=== PATIENT | male | born 1955 | race Caucasian/White ===

== ENCOUNTER 2022-03-20 10:07 | Inpatient (IN) | payer SELFPAY ==
--- NOTE | 2022-03-20 11:22 | Emergency Department Report ---
ED General Adult HPI - General Chief complaint: Weakness Stated complaint: DIALYSIS/WEAKNESS Time Seen by Provider: 03/20/22 11:21 Source: patient Mode of arrival: Stretcher Limitations: No Limitations - History of Present Illness Initial comments: Patient is a 66-year-old male who presents with shortness of breath and weakness. Patient is a [place] Verdean speaking male. History is limited due to poor history. Patient was brought in by EMS he has not had dialysis he usually gets his dialysis at [facility]. He is on 3 L of oxygen. - Related Data Allergies Allergy/AdvReac Type Severity Reaction Status Date / Time No Known Allergies Allergy Verified 03/20/22 10:55 ED Review of Systems ROS: Stated complaint: DIALYSIS/WEAKNESS Other details as noted in HPI Comment: Unobtainable due to pts medical conditions ED Past Medical Hx - Past Medical History Previous Medical History?: Yes Hx Renal Disease: Yes - Surgical History Past Surgical History?: No - Social History Smoking Status: Unknown if ever smoked Substance Use Type: None ED Physical Exam - General Limitations: No Limitations, Language Barrier General appearance: alert, in no apparent distress - Head Head exam: Present: atraumatic, normocephalic - Eye Eye exam: Present: normal appearance - ENT ENT exam: Present: mucous membranes moist - Neck Neck exam: Present: normal inspection - Respiratory Respiratory exam: Present: other (Crackles) - Cardiovascular Cardiovascular Exam: Present: regular rate, normal rhythm. Absent: systolic murmur, diastolic murmur, rubs, gallop - GI/Abdominal GI/Abdominal exam: Present: soft, normal bowel sounds - Rectal Rectal exam: Present: deferred - Extremities Exam Extremities exam: Present: other (Bilateral [id number] amputations left AV fistula) - Back Exam Back exam: Present: normal inspection - Neurological Exam Neurological exam: Present: alert, oriented X3 - Psychiatric Psychiatric exam: Present: normal affect, normal mood - Skin Skin exam: Present: warm, dry, intact, normal color. Absent: rash ED Course Vital Signs 03/20/22 03/20/22 10:37 10:56 Temperature 99 F Pulse Rate 88 Respiratory 16 Rate Blood Pressure 124/30 [Left] O2 Sat by Pulse 95 95 Oximetry ED Medical Decision Making - Lab Data Result diagrams: 03/20/22 11:28 03/20/22 11:28 Lab Results 06/18/22 06/18/22 Range/Units 11:28 11:28 WBC 10.9 (4.5-11.0) K/mm3 RBC 3.02 L (3.65-5.03) M/mm3 Hgb 9.0 L (11.8-15.2) gm/dl Hct 28.1 L (35.5-45.6) % MCV 93 (84-94) fl MCH 30 (28-32) pg MCHC 32 (32-34) % RDW 19.6 H (13.2-15.2) % Plt Count 181 (140-440) K/mm3 Lymph % (Auto) 8.5 L (13.4-35.0) % [place] % (Auto) 6.2 (0.0-7.3) % Eos % (Auto) 2.4 (0.0-4.3) % Baso % (Auto) 1.0 (0.0-1.8) % Lymph # (Auto) 0.9 L (1.2-5.4) K/mm3 [place] # (Auto) 0.7 (0.0-0.8) K/mm3 Eos # (Auto) 0.3 (0.0-0.4) K/mm3 Baso # (Auto) 0.1 (0.0-0.1) K/mm3 Seg Neutrophils % 81.9 H (40.0-70.0) % Seg Neutrophils # 8.9 H (1.8-7.7) K/mm3 Sodium 137 (137-145) mmol/L Potassium 4.4 (3.6-5.0) mmol/L Chloride 97.2 L (98-107) mmol/L Carbon Dioxide 27 (22-30) mmol/L Anion Gap 17 mmol/L BUN 42 H (9-20) mg/dL Creatinine 6.3 H (0.8-1.3) mg/dL Estimated GFR 9 ml/min BUN/Creatinine Ratio 7 % Glucose 89 (75-100) mg/dL Calcium 9.3 (8.4-10.2) mg/dL Total Bilirubin 0.60 (0.1-1.2) mg/dL AST 44 H (5-40) units/L ALT 20 (7-56) units/L Alkaline Phosphatase 90 (35-129) units/L Total Protein 6.5 (6.3-8.2) g/dL Albumin 2.5 L (3.9-5) g/dL Albumin/Globulin Ratio 0.6 % - EKG Data -: EKG Interpreted by Me - EKG Data 03/20/22 14:17 EKG time 12: 45 rate 84 sinus rhythm right bundle branch block and left anterior fascicular block. Impression abnormal EKG - Radiology Data Radiology results: report reviewed, image reviewed Chest x-ray: Shows bilateral pulmonary opacities - Medical Decision Making Chief medical diagnosis: Pulmonary edema Differential medical diagnosis end-stage renal disease, acute kidney injury, hyperkalemia I will get CBC BMP chest x-ray and nephrology consult Patient will need to be admitted to the hospital for diaysis and fluid overload. Critical care attestation.: If time is entered above; I have spent that time in minutes in the direct care of this critically ill patient, excluding procedure time. ED Disposition Clinical Impression: ESRD (end stage renal disease) on dialysis Pulmonary edema Qualifiers: Chronicity: acute Qualified Code(s): J81.0 - Acute pulmonary edema Disposition: ADMITTED INPATIENT Is pt being admited?: Yes Does the pt Need Aspirin: No Condition: Stable Instructions: Pulmonary Edema (ED) Referrals: LEONEL OROZCO MD [Primary Care Provider] - 3-5 Days
[2022-03-20 12:24] LABS: Basophils # (Auto) 0.1 K/mm3 (0.0-0.1); Eosinophils # (Auto) 0.3 K/mm3 (0.0-0.4); Eosinophils % (Auto) 2.4 % (0.0-4.3); Hematocrit 28.1 % (35.5-45.6); Lymphocytes # (Auto) 0.9 K/mm3 (1.2-5.4); Lymphocytes % (Auto) 8.5 % (13.4-35.0); Mean Corpuscular HGB Conc 32 % (32-34); Mean Corpuscular Volume 93 fl (84-94); Monocytes # (Auto) 0.7 K/mm3 (0.0-0.8); Monocytes % (Auto) 6.2 % (0.0-7.3); Platelet Count 181 K/mm3 (140-440); Red Blood Count 3.02 M/mm3 (3.65-5.03); Red Cell Distribution Width 19.6 % (13.2-15.2)
[2022-03-20 12:42] LABS: Albumin 2.5 g/dL (3.9-5); Calcium 9.3 mg/dL (8.4-10.2)
--- NOTE | 2022-03-20 13:10 | XRay Report ---
CHEST 1 VIEW 03/20/2022 12:01 PM INDICATION / CLINICAL INFORMATION: weakness. COMPARISON: None available. FINDINGS: SUPPORT DEVICES: None. HEART / MEDIASTINUM: No significant abnormality. LUNGS / PLEURA: Increased interstitial prominence with bilateral pulmonary opacities. Small effusions No pneumothorax. ADDITIONAL FINDINGS: No significant additional findings. IMPRESSION: Bilateral pulmonary opacities Signer Name: Yon Castellon MD Signed: 03/20/2022 1:05 PM Workstation Name: [id number]
[2022-03-20] MEDS ORDERED: SODIUM CHLORIDE 0.9% 100 ML IV PRN (13:44)
--- NOTE | 2022-03-20 13:49 | Consultation ---
History of Present Illness - Reason for Consult Consult date: 03/20/22 end stage renal disease - History of Present Illness RFC: ESRD on HD HPI: 66 year old M here for dialysis. He currently denies N/V, belly pain, diarrhea. He is on HD via AVF. He gets HD in hospital ERs as he does not have a dialysis unit. ROS: As in HPI otherwise 12 point review of systems -ve - Past Medical History Previous Medical History?: Yes Hx Renal Disease: Yes - Surgical History Past Surgical History?: No - Social History Smoking Status: Unknown if ever smoked Substance Use Type: None Medications and Allergies Allergies Allergy/AdvReac Type Severity Reaction Status Date / Time No Known Allergies Allergy Verified 03/20/22 10:55 Active Meds: Active Medications Sodium Chloride (Nacl 0.9%) 100 mls @ 999 mls/hr IV SANDIE PRN PRN Reason: Hypotension Exam - Vital Signs Vital signs: Vital Signs Temp Pulse Resp BP Pulse Ox 99 F 88 16 124/30 95 03/20/22 10:37 03/20/22 10:37 03/20/22 10:37 03/20/22 10:37 03/20/22 10:37 - Physical Exam Narrative exam: GE:AAOX3 HEENT:Normocephalic Neck:Supple Chest:CTAB CVS:RRR Abdomen:Soft/BS+ Ext:No cce Results - Lab Results 03/20/22 11:28 03/20/22 11:28 Most recent lab results Calcium 9.3 mg/dL (8.4-10.2) 03/20/22 11:28 Assessment and Plan ESRD on HD Anemia of chronic disease due to ESRD: Hypoalbuminemia: Elevated LFTs: -CXR congested. -HD ordered for today -Pt agreeable and consents to HD inpatient -Does not have OP HD unit, he gets HD at [facility] usually -Strict I/Os
[2022-03-20] MEDS ORDERED: MORPHINE 2 MG/1 ML INJ IV PRN (15:11)
[2022-03-20] MEDS ORDERED: METOCLOPRAMIDE 10 MG/2 ML INJ IV PRN (15:11)
[2022-03-20] MEDS ORDERED: oxyCODONE /ACETAMINOPHEN 5-325MG TAB PO PRN (15:11)
[2022-03-20] MEDS ORDERED: ONDANSETRON 4 MG/2 ML INJ IV PRN (15:11)
[2022-03-20] MEDS ORDERED: ACETAMINOPHEN 325 MG TAB PO PRN (15:11)
[2022-03-20] MEDS: HEPARIN 5,000 UNIT/1 ML VIAL SUB-Q SCH (16:30)
[2022-03-20 17:41] LABS: Hepatitis B Surface Antigen Non-Reactive (Negative)
--- NOTE | 2022-03-20 18:50 | History and Physical Report ---
History of Present Illness Date of examination: 03/20/22 Date of admission: 03/20/2022 Chief complaint: Shortness of breath for about 2 days History of present illness: [age]-year-old Vietnamese-speaking male with history of end-stage renal disease comes in for missed hemodialysis. He missed 2 hemodialysis sessions. Normally gets dialysis twice a week on Wednesdays and Saturdays. He goes to [facility] for getting his hemodialysis. History taking is limited because of language barrier. Patient is short of breath because of the missed dialysis and also has orthopnea. No fever or chills. Patient does not have a hemodialysis chair. 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 - Past Medical History --Renal Disease: Yes - Surgical History -- Bilateral above-knee amputation - Social History --Smoking Status: Unknown if ever smoked --Substance Use Type: None -Family history --unavailable Review of Systems ROS: Constitutional no weight loss or weight gain no fever or chills HEENT no sore throat no post nasal drip no diplopia Neck no neck stiffness no lymph gland enlargement Chest and lungs shortness of breath and orthopnea present CVS shortness of breath and orthopnea present GI no nausea no vomiting no diarrhea Genitourinary system no dysuria no flank pain Musculoskeletal system no muscle pains no joint pains FOOD SERVICE ORDER CLERK no syncope no seizures Skin no rash no itching Psychiatric no depression no homicidal or suicidal tendencies Hematologic no lymphedema or bruising Endocrine no polydipsia no polyuria no cold intolerance no heat intolerance Medications and Allergies Allergies Allergy/AdvReac Type Severity Reaction Status Date / Time No Known Allergies Allergy Verified 03/20/22 10:55 Active Meds: Active Medications Acetaminophen (Acetaminophen 325 Mg Tab) 650 mg PO Q4H PRN PRN Reason: Pain MILD(1-3)/Fever >100.5/THAKUR Heparin Sodium (Porcine) (Heparin 5,000 Unit/1 Ml Vial) 5,000 unit SUB-Q Q12HR SUSAN Last Admin: 03/20/22 16:30 Dose: 5,000 unit Sodium Chloride (Nacl 0.9%) 100 mls @ 999 mls/hr IV SANDIE PRN PRN Reason: Hypotension Metoclopramide HCl (Metoclopramide 10 Mg/2 Ml Inj) 10 mg IV Q6H PRN PRN Reason: Nausea And Vomiting Morphine Sulfate (Morphine 2 Mg/1 Ml Inj) 2 mg IV Q4H PRN PRN Reason: Pain, Moderate (4-6) Ondansetron HCl (Ondansetron 4 Mg/2 Ml Inj) 4 mg IV Q8H PRN PRN Reason: Nausea And Vomiting Oxycodone/Acetaminophen (Oxycodone /Acetaminophen 5-325mg Tab) 1 tab PO Q6H PRN PRN Reason: Pain, Moderate (4-6) Sodium Chloride (Sodium Chloride 0.9% 10 Ml Flush Syringe) 10 ml IV BID SUSAN Last Admin: 03/20/22 16:30 Dose: 10 ml Sodium Chloride (Sodium Chloride 0.9% 10 Ml Flush Syringe) 10 ml IV PRN PRN PRN Reason: LINE FLUSH Exam - Constitutional Vitals: Temp Pulse Resp BP Pulse Ox 99 F 88 16 124/30 95 03/20/22 10:37 03/20/22 10:37 03/20/22 10:37 03/20/22 10:37 03/20/22 10:56 General appearance: Present: mild distress, well-nourished - EENT Eyes: Present: PERRL ENT: hearing intact, clear oral mucosa - Neck Neck: Present: supple, normal ROM - Respiratory Respiratory effort: normal Respiratory: bilateral: CTA - Cardiovascular Heart rate: 95 Rhythm: regular Heart Sounds: Present: S1 & S2. Absent: rub, click - Extremities Extremities: pulses symmetrical, No edema, abnormal (Bilateral above-knee amputation) Extremity abnormal: other (Bilateral above-knee amputation) Peripheral Pulses: within normal limits - Abdominal General gastrointestinal: Present: soft, non-tender, non-distended, normal bowel sounds Male genitourinary: Present: normal - Integumentary Integumentary: Present: clear, warm, dry - Musculoskeletal Musculoskeletal: gait normal, strength equal bilaterally - Psychiatric Psychiatric: appropriate mood/affect, intact judgment & insight - Neurologic Neurologic: CNII-XII intact, moves all extremities HEART Score - HEART Score History: Moderately suspicious Risk factors: 1-2 risk factors Troponin: < normal limit - Critical Actions Critical Actions: 0-3 pts:0.9-1.7%risk of adverse cardiac event.Candidate for discharge Results - Labs CBC & Chem 7: 03/20/22 11:28 03/20/22 11:28 Labs: Laboratory Last Values WBC 10.9 K/mm3 (4.5-11.0) 03/20/22 11: RBC 3.02 M/mm3 (3.65-5.03) L 03/20/22 11:28 Hgb 9.0 gm/dl (11.8-15.2) L 03/20/22 11: Hct 28.1 % (35.5-45.6) L 03/20/22 11: MCV 93 fl (84-94) 03/20/22 11: MCH 30 pg (28-32) 03/20/22 11:28 MCHC 32 % (32-34) 03/20/22 11:28 RDW 19.6 % (13.2-15.2) H 03/20/22 11:28 Plt Count 181 K/mm3 (140-440) 03/20/22 11:28 Lymph % (Auto) 8.5 % (13.4-35.0) L 03/20/22 11: [place] % (Auto) 6.2 % (0.0-7.3) 03/20/22 11: Eos % (Auto) 2.4 % (0.0-4.3) 03/20/22 11: Baso % (Auto) 1.0 % (0.0-1.8) 03/20/22 11: Lymph # (Auto) 0.9 K/mm3 (1.2-5.4) L 03/20/22 11:28 [place] # (Auto) 0.7 K/mm3 (0.0-0.8) 03/20/22 11: Eos # (Auto) 0.3 K/mm3 (0.0-0.4) 03/20/22 11: Baso # (Auto) 0.1 K/mm3 (0.0-0.1) 03/20/22 11: Seg Neutrophils % 81.9 % (40.0-70.0) H 03/20/22 11: Seg Neutrophils # 8.9 K/mm3 (1.8-7.7) H 03/20/22 11:28 Sodium 137 mmol/L (137-145) 03/20/22 11:28 Potassium 4.4 mmol/L (3.6-5.0) 03/20/22 11:28 Chloride 97.2 mmol/L (98-107) L 03/20/22 11:28 Carbon Dioxide 27 mmol/L (22-30) 03/20/22 11:28 Anion Gap 17 mmol/L 03/20/22 11:28 BUN 42 mg/dL (9-20) H 03/20/22 11:28 Creatinine 6.3 mg/dL (0.8-1.3) H 03/20/22 11:28 Estimated GFR 9 ml/min 03/20/22 11:28 BUN/Creatinine Ratio 7 % 03/20/22 11:28 Glucose 89 mg/dL (75-100) 03/20/22 11:28 Calcium 9.3 mg/dL (8.4-10.2) 03/20/22 11:28 Total Bilirubin 0.60 mg/dL (0.1-1.2) 03/20/22 11:28 AST 44 units/L (5-40) H 03/20/22 11:28 ALT 20 units/L (7-56) 03/20/22 11:28 Alkaline Phosphatase 90 units/L (35-129) 03/20/22 11:28 Total Protein 6.5 g/dL (6.3-8.2) 03/20/22 11:28 Albumin 2.5 g/dL (3.9-5) L 03/20/22 11:28 Albumin/Globulin Ratio 0.6 % 03/20/22 11:28 Hepatitis A IgM Ab Non-reactive (NonReactive) 03/20/22 14:03 Hep Bs Antigen Non-reactive (Negative) 03/20/22 14:03 Hep B Core IgM Ab Non-reactive (NonReactive) 03/20/22 14:03 Short CBC 03/20/22 Range/Units 11:28 WBC 10.9 (4.5-11.0) K/mm3 Hgb 9.0 L (11.8-15.2) gm/dl Hct 28.1 L (35.5-45.6) % Plt Count 181 (140-440) K/mm3 BMP 03/20/22 11:28 Sodium 137 Potassium 4.4 Chloride 97.2 L Carbon Dioxide 27 BUN 42 H Creatinine 6.3 H Glucose 89 Calcium 9.3 Liver Function 03/20/22 Range/Units 11:28 Total Bilirubin 0.60 (0.1-1.2) mg/dL AST 44 H (5-40) units/L ALT 20 (7-56) units/L Alkaline Phosphatase 90 (35-129) units/L Albumin 2.5 L (3.9-5) g/dL Assessment and Plan Advance Directives: Yes (Full code) VTE prophylaxis?: Chemical Plan of care discussed with patient/family: Yes - Patient Problems (1) Volume overload Current Visit: Yes Status: Acute Plan to address problem: Volume overload secondary to missed hemodialysis Patient to get emergent hemodialysis Increase ultrafiltration (2) ESRD (end stage renal disease) on dialysis Current Visit: Yes Status: Chronic Plan to address problem: Nephrology consult for hemodialysis Hemodialysis as per schedule on Wednesdays and Saturdays (3) Anemia Current Visit: Yes Status: Chronic Qualifiers: Anemia type: due to chronic kidney disease Chronic kidney disease stage: on chronic dialysis Qualified Code(s): N18.6 - End stage renal disease; D63.1 - Anemia in chronic kidney disease; Z99.2 - Dependence on renal dialysis Plan to address problem: Anemia secondary to end-stage renal disease Will defer to nephrology regarding Epogen (4) Malnutrition Current Visit: Yes Status: Chronic Qualifiers: Protein-calorie malnutrition severity: mild Plan to address problem: Dietary supplements (5) Transaminitis Current Visit: Yes Status: Acute Plan to address problem: AST slightly elevated at 44 Hepatitis profile is negative (6) DVT prophylaxis Current Visit: Yes Status: Acute Plan to address problem: On heparin GI prophylaxis (7) Advance care planning Current Visit: Yes Status: Acute Plan to address problem: Disease education conducted care plan discussed diagnosis discussed, prognosis discussed. Patient acknowledges understanding and agrees with care plan. +30 minutes.
[2022-03-20 18:55] LABS: Hepatitis C Virus Antibody Non-Reactive (NonReactive)
--- NOTE | 2022-03-20 19:05 | Discharge Summary ---
Providers - Providers Date of discharge: 03/21/22 03/20/22 15:11 Consult to Physician [CONS] Routine Comment: Consulting Provider: ELROY WHEELER Physician Instructions: Reason For Exam: ESRD Primary care physician: LEONEL OROZCO Hospitalization Condition: Stable Disposition: 01 HOME / SELF CARE / HOMELESS - Discharge Diagnoses (1) Volume overload Status: Acute (2) ESRD (end stage renal disease) on dialysis Status: Chronic (3) Anemia Status: Chronic Qualifiers: Anemia type: due to chronic kidney disease Chronic kidney disease stage: on chronic dialysis Qualified Code(s): N18.6 - End stage renal disease; D63.1 - Anemia in chronic kidney disease; Z99.2 - Dependence on renal dialysis (4) Malnutrition Status: Chronic Qualifiers: Protein-calorie malnutrition severity: mild (5) Transaminitis Status: Acute (6) DVT prophylaxis Status: Acute (7) Advance care planning Status: Acute Exam - Constitutional Vitals: Temp Pulse Resp BP Pulse Ox 99 F 88 16 124/30 95 03/20/22 10:37 03/20/22 10:37 03/20/22 10:37 03/20/22 10:37 03/20/22 10:56 Plan Follow up with: LEONEL OROZCO MD [Primary Care Provider] - 3-5 Days
[2022-03-21] MEDS: HEPARIN 5,000 UNIT/1 ML VIAL SUB-Q SCH ×2 (00:52→10:12)
[2022-03-21 05:54] LABS: Basophils # (Auto) 0.1 K/mm3 (0.0-0.1); Basophils % (Auto) 0.8 % (0.0-1.8); Eosinophils # (Auto) 0.2 K/mm3 (0.0-0.4); Eosinophils % (Auto) 2.2 % (0.0-4.3); Hematocrit 29.1 % (35.5-45.6); Lymphocytes # (Auto) 1.1 K/mm3 (1.2-5.4); Mean Corpuscular HGB Conc 31 % (32-34); Mean Corpuscular Volume 94 fl (84-94); Monocytes # (Auto) 0.6 K/mm3 (0.0-0.8); Monocytes % (Auto) 6.7 % (0.0-7.3); Platelet Count 165 K/mm3 (140-440)
[2022-03-21 05:57] LABS: Red Cell Distribution Width 20.1 % (13.2-15.2)
[2022-03-21 07:06] LABS: Albumin 2.5 g/dL (3.9-5); Calcium 9.1 mg/dL (8.4-10.2)
[2022-03-21] MEDS ORDERED: METOCLOPRAMIDE 10 MG/2 ML INJ IV PRN (08:00)
--- NOTE | 2022-03-21 09:27 | Progress Note ---
Assessment and Plan Assessment ESRD on HD Anemia of chronic disease due to ESRD: Hypoalbuminemia: Elevated LFTs: Plan -S/P hemodialysis yesterday for UF and clearance -Fluid restriction of 1 liter per day -Renally dose medications -Strict I/O's daily -Does not have OP HD unit, he gets HD at [facility] usually -Awaiting transportation for discharge home today -Plan of care reviewed by Dr. Ramirez Subjective Date of service: 03/21/22 Principal diagnosis: ESRD Interval history: Patient seen lying in bed. No family at bedside. Objective - Vital Signs Vital signs: Vital Signs - 12hr 03/20/22 03/20/22 03/20/22 22:13 23:07 23:30 Temperature 99.6 F Pulse Rate 206 H 98 H Respiratory 20 20 Rate Blood Pressure 132/30 120/38 O2 Sat by Pulse 62 L 96 98 Oximetry 03/21/22 05:07 Temperature Pulse Rate 82 Respiratory 20 Rate Blood Pressure 115/24 O2 Sat by Pulse 97 Oximetry - General Appearance General appearance: fatigue, other (Awake) EENT: ATNC Neck: no JVD Respiratory: Present: Decreased Breath Sounds Cardiology: S1S2 Gastrointestinal: normoactive bowel sounds Integumentary: other (staple noted to stump wounds) Neurologic: other (Awake) Musculoskeletal: other (bilateral amputee) - Lab 03/21/22 04:54 03/21/22 04:54 Most recent lab results Calcium 9.1 mg/dL (8.4-10.2) 03/21/22 04:54 Medications & Allergies - Medications Allergies/Adverse Reactions: Allergies No Known Allergies Allergy (Verified 03/20/22 10:55) Home Medications: Home Medications Medication Instructions Recorded Confirmed Last Taken Type No Known Home Medications [No 03/21/22 03/21/22 Unknown History Reported Home Medications] Active Medications: Generic Name Dose Route Start Last Admin Trade Name Freq PRN Reason Stop Dose Admin Acetaminophen 650 mg 03/20/22 15:11 03/21/22 00:53 Acetaminophen 325 Mg Tab PO 650 mg Q4H PRN Administration Pain MILD(1-3)/Fever >100.5/THAKUR Heparin Sodium (Porcine) 5,000 unit 03/20/22 15:30 03/21/22 00:52 Heparin 5,000 Unit/1 Ml Vial SUB-Q Not Given Q12HR SUSAN Sodium Chloride 100 mls @ 999 mls/hr 03/20/22 13:44 Nacl 0.9% IV SANDIE PRN Hypotension Metoclopramide HCl 5 mg 03/21/22 08:00 Metoclopramide 10 Mg/2 Ml Inj IV Q8H PRN Nausea And Vomiting Morphine Sulfate 2 mg 03/20/22 15:11 Morphine 2 Mg/1 Ml Inj IV Q4H PRN Pain, Moderate (4-6) Ondansetron HCl 4 mg 03/20/22 15:11 Ondansetron 4 Mg/2 Ml Inj IV Q8H PRN Nausea And Vomiting Oxycodone/Acetaminophen 1 tab 03/20/22 15:11 Oxycodone /Acetaminophen 5-325mg Tab PO Q6H PRN Pain, Moderate (4-6) Sodium Chloride 10 ml 03/20/22 16:00 03/21/22 00:53 Sodium Chloride 0.9% 10 Ml Flush Syringe IV Not Given BID SUSAN Sodium Chloride 10 ml 03/20/22 15:11 Sodium Chloride 0.9% 10 Ml Flush Syringe IV PRN PRN LINE FLUSH
--- NOTE | 2022-03-21 10:42 | Electrocardiograph Report ---
[facility] Test Date: 2022-03-20 Test Time: 12:45:07 Pat Name: JACKIE QUEZADA Department: Room: [facility] Gender: M Telemarketing Manager: LARON : 1955 Requested By: ROSIBEL HICKS Order Number: [id number] Reading MD: Isaak Carrasquillo Measurements Intervals [place] Rate: 84 P: 25 AK: 162 QRS: -82 QRSD: 129 T: -10 QT: 416 QTc: 490 Interpretive Statements Sinus rhythm RBBB and LAFB No previous ECG available for comparison Electronically Signed On 03-21-2022 10:42:23 EDT by Isaak Carrasquillo
--- NOTE | 2022-03-21 10:52 | Event Note ---
Date: 03/21/22 Please refer to the discharge summary by Dr. Matt on 03/20/2022.
[2022-03-21 13:19] VITALS: BP 120/47
== END 2022-03-21 13:00 | disposition home or self-care (01) | DRG 640 ==
LOC: ED 10:07 → 3A 15:11
PROVIDERS: ADMIT Internal Medicine; ATTEND Student in an Organized Health Care Education/Training Program
PROC: 5A1D70Z Performance of Urinary Filtration, Intermittent, Less than 6 Hours Per Day (ICD-10-PCS; principal; 2022-03-20)
DX: E87.70 Fluid overload, unspecified (principal); N18.6 End stage renal disease; E44.1 Mild protein-calorie malnutrition; D63.1 Anemia in chronic kidney disease; E88.09 Other disorders of plasma-protein metabolism, not elsewhere classified; Z68.23 Body mass index [BMI] 23.0-23.9, adult
CPT/HCPCS: 36415; 71045; 80053; 80074; 82962; 85025; 93005; G0378; J1644